=== PATIENT | female | born 1955 | race Two or more races ===

== ENCOUNTER 2023-11-19 19:18 | Inpatient (IN) | payer OTHER ==
[~2023-11-19] VITALS: Ht 154.9 cm; Wt 62.7 kg
[2023-11-19] MEDS: SODIUM CHLORIDE 0.9% 1,000 ML IV ONE (21:06)
[2023-11-19] MEDS: PANTOPRAZOLE 40 MG/10 ML VIAL INJ IV ONE (21:06)
[2023-11-19] MEDS: ONDANSETRON HCL 4 MG/2 ML VIAL IV ONE (21:06)
[2023-11-19] MEDS: IOHEXOL 300 MG/ML 100ML BOTTLE IJ ONE (21:06)
[2023-11-19 21:37] LABS: Basophils # (auto) 0 10 ^3/uL (0-0.2); Basophils % (auto) 0.5 % (0.0-2.0); Eosinophils # (auto) 0 10 ^3/uL (0-0.8); Eosinophils % (auto) 0.2 % (0.0-7.0); Hematocrit 39.5 % (36.0-46.0); Hemoglobin 13.9 g/dL (12.2-16.2); Lymphocytes % (auto) 13.7 % (10.0-50.0); Mean Corpuscular Hemoglobin 31.2 pg (28.0-32.0); Mean Corpuscular Hgb Conc. 35.2 g/dL (32.0-36.0); Mean Corpuscular Volume 88.6 fL (80.0-100.0); Monocytes # (auto) 0.6 10 ^3/uL (0-1.3); Monocytes % (auto) 7.7 % (0.0-12.0); Neutrophils # (auto) 5.8 10 ^3/uL (1.6-8.6); Neutrophils % (auto) 77.9 % (37.0-80.0); Nucleated Red Blood Cells % 0.1 %; Red Blood Cells 4.46 10^6/uL (4.0-5.20); Red Cell Distribution Width 13.5 % (11.8-14.3); White Blood Cell 7.5 10^3/uL (4.4-10.8)
[2023-11-19 21:56] LABS: Albumin 4.1 g/dL (3.2-4.8); Alkaline Phosphatase 59 U/L (46-116); Anion Gap 14 (5-15); Aspartate Aminotransferase 9 U/L (13-40); BUN/Creatinine Ratio 21.7 (10.0-20.0); Bilirubin, Total 1.2 mg/dL (0.2-1.0); Blood Urea Nitrogen 25 mg/dL (9-23); Calcium 9.6 mg/dL (8.7-10.4); Carbon Dioxide 26 mmol/L (20-30); Chloride 89 mmol/L (98-107); Glucose 96 mg/dL (74-106); Lipase 63 U/L (12-53); Potassium 2.8 mmol/L (3.5-5.1); Sodium 129 mmol/L (136-145); Total Protein 6.6 g/dL (5.7-8.2)
[2023-11-19 22:00] LABS: Alanine Aminotransferase < 9 U/L (7-40)
[2023-11-19 23:44] VITALS: PULSE 91; RESP 12; O2SAT 96
[2023-11-19] MEDS: POTASSIUM CHL 20MEQ/100ML 100 ML IV SCH (23:53)
[2023-11-20 00:51] LABS: Urine Bacteria None Seen /hpf (None Seen)
[2023-11-20 01:24] LABS: Urine Blood TRACE /uL (Negative); Urine Clarity Clear (Clear); Urine Color Yellow (Yellow); Urine Protein, UAD 1+ (Negative); Urine Specific Gravity 1.027 (1.001-1.035); Urine Urobilinogen 3 mg/dL (Negative); Urine WBC 6 /hpf (0 - 5); Urine pH 6.5 (5.0-9.0)
[2023-11-20] MEDS: SODIUM CHLORIDE 0.9% 1,000 ML IV SCH (03:45)
[2023-11-20 04:43] LABS: Basophils # (auto) 0 10 ^3/uL (0-0.2); Basophils % (auto) 0.5 % (0.0-2.0); Eosinophils # (auto) 0 10 ^3/uL (0-0.8); Eosinophils % (auto) 0.6 % (0.0-7.0); Hematocrit 35.7 % (36.0-46.0); Hemoglobin 12.4 g/dL (12.2-16.2); Lymphocytes # (auto) 0.9 10 ^3/uL (0.4-5.4); Lymphocytes % (auto) 16.9 % (10.0-50.0); Mean Corpuscular Hemoglobin 30.9 pg (28.0-32.0); Mean Corpuscular Hgb Conc. 34.8 g/dL (32.0-36.0); Mean Corpuscular Volume 88.9 fL (80.0-100.0); Monocytes # (auto) 0.6 10 ^3/uL (0-1.3); Monocytes % (auto) 10.4 % (0.0-12.0); Neutrophils # (auto) 3.9 10 ^3/uL (1.6-8.6); Neutrophils % (auto) 71.6 % (37.0-80.0); Red Blood Cells 4.02 10^6/uL (4.0-5.20); Red Cell Distribution Width 13.8 % (11.8-14.3); White Blood Cell 5.5 10^3/uL (4.4-10.8)
[2023-11-20 04:48] LABS: Chloride 100 mmol/L (98-107); Potassium 3.6 mmol/L (3.5-5.1); Sodium 133 mmol/L (136-145)
[2023-11-20 04:49] LABS: Anion Gap 8 (5-15); Carbon Dioxide 25 mmol/L (20-30)
[2023-11-20 04:50] LABS: Calcium 7.7 mg/dL (8.7-10.4)
[2023-11-20 04:54] LABS: Blood Urea Nitrogen 20 mg/dL (9-23); Glucose 72 mg/dL (74-106)
[2023-11-20 07:48] VITALS: PULSE 99; RESP 12; O2SAT 96
[2023-11-20] MEDS ORDERED: MIDAZOLAM HCL 2MG/2ML 2ml VIAL (1mg/ml) ONE (14:57)
[2023-11-20] MEDS ORDERED: PROPOFOL 10 MG/ML 20 ML IV ONE (15:16)
[2023-11-20] MEDS ORDERED: ONDANSETRON HCL 4 MG/2 ML VIAL ONE (15:20)
[2023-11-20 15:30] VITALS: O2SAT 100
[2023-11-20 16:00] VITALS: BP 156/82; PULSE 88; RESP 16; TEMP 98.5; O2SAT 92
[2023-11-20 16:24] VITALS: O2SAT 97
[2023-11-20 16:25] VITALS: O2SAT 100
[2023-11-20 20:00] VITALS: PULSE 76; PULSE 80; RESP 18; O2SAT 95
[2023-11-20] MEDS: PANTOPRAZOLE 40 MG/10 ML VIAL INJ IV SCH (21:44)
[2023-11-21] VITALS (8 sets, daily range): BP systolic 132–168; BP diastolic 71–97; PULSE 80–92; RESP 16–97; TEMP 97–98.9; O2SAT 93–99
[2023-11-21] MEDS ORDERED: TPN PER PHARMACY 0 ML IV SCH (16:15)
[2023-11-21 16:40] LABS: INR 1.26 (0.9-1.15); Prothrombin Time 13.1 sec (9.3-11.8)
[2023-11-21] MEDS ORDERED: DEXTROSE (50%) 50ML SYRG IV SCH (16:45)
[2023-11-21] MEDS: ACCU-CHEK COMFORT CURVE STRIP VI SCH (18:00)
[2023-11-21] MEDS: InsuLIN REG 1unit/0.01ml Soln (100units/ml) SC SCH (18:00)
[2023-11-21 18:15] LABS: Alkaline Phosphatase 55 U/L (46-116); Anion Gap 11 (5-15); Aspartate Aminotransferase 10 U/L (13-40); BUN/Creatinine Ratio 14.9 (10.0-20.0); Blood Urea Nitrogen 13 mg/dL (9-23); Calcium 8.4 mg/dL (8.7-10.4); Carbon Dioxide 19 mmol/L (20-30); Chloride 105 mmol/L (98-107); Glucose 85 mg/dL (74-106); Magnesium 1.5 mg/dL (1.6-2.6); Potassium 3.2 mmol/L (3.5-5.1); Sodium 135 mmol/L (136-145)
[2023-11-21 18:16] LABS: Albumin 3.2 g/dL (3.2-4.8); Bilirubin, Total 0.8 mg/dL (0.2-1.0); Phosphorus 1.7 mg/dL (2.4-5.1); Total Protein 5.4 g/dL (5.7-8.2)
[2023-11-21 18:19] LABS: Alanine Aminotransferase < 9 U/L (7-40)
[2023-11-21] MEDS: MAGNESIUM SULFATE 1GM/100ML 100 ML IV SCH (19:15)
[2023-11-21] MEDS: POTASSIUM PHOSPHATE 22 MEQ in SODIUM CHL 0.9% 100 ML IV ONE (21:02)
[2023-11-21] MEDS: AMINO ACID INFUSION IN D10W 1,000 ML IV SCH (21:10)
[2023-11-22] VITALS (9 sets, daily range): BP systolic 152–168; BP diastolic 79–103; PULSE 77–100; RESP 16–19; TEMP 97.7–98.5; O2SAT 97–98
[2023-11-22 04:47] LABS: Basophils # (auto) 0 10 ^3/uL (0-0.2); Basophils % (auto) 0.3 % (0.0-2.0); Eosinophils # (auto) 0.1 10 ^3/uL (0-0.8); Eosinophils % (auto) 0.7 % (0.0-7.0); Hematocrit 39.4 % (36.0-46.0); Hemoglobin 13.7 g/dL (12.2-16.2); Lymphocytes # (auto) 0.7 10 ^3/uL (0.4-5.4); Lymphocytes % (auto) 8.2 % (10.0-50.0); Mean Corpuscular Hemoglobin 30.9 pg (28.0-32.0); Mean Corpuscular Hgb Conc. 34.8 g/dL (32.0-36.0); Mean Corpuscular Volume 88.8 fL (80.0-100.0); Monocytes # (auto) 0.3 10 ^3/uL (0-1.3); Monocytes % (auto) 3.6 % (0.0-12.0); Neutrophils # (auto) 7.1 10 ^3/uL (1.6-8.6); Neutrophils % (auto) 87.2 % (37.0-80.0); Red Blood Cells 4.44 10^6/uL (4.0-5.20); White Blood Cell 8.1 10^3/uL (4.4-10.8)
[2023-11-22 04:56] LABS: Calcium 8.7 mg/dL (8.7-10.4); Chloride 102 mmol/L (98-107); Potassium 2.8 mmol/L (3.5-5.1); Sodium 135 mmol/L (136-145)
[2023-11-22 04:57] LABS: Anion Gap 10 (5-15); Carbon Dioxide 23 mmol/L (20-30)
[2023-11-22 05:02] LABS: BUN/Creatinine Ratio 15.9 (10.0-20.0); Blood Urea Nitrogen 13 mg/dL (9-23); Glucose 144 mg/dL (74-106)
[2023-11-22 05:04] LABS: Phosphorus 1.3 mg/dL (2.4-5.1)
[2023-11-22] MEDS: ONDANSETRON HCL 4 MG/2 ML VIAL IV PRN (11:26)
[2023-11-22] MEDS: LIDOCAINE 1% (LOCAL ANESTH.) PF 5ml SDV ID ONE (14:30)
[2023-11-22] MEDS: POTASSIUM PHOSPHATE 44 MEQ in D5W 5% 250 ML IV ONE (14:45)
[2023-11-22] MEDS: POTASSIUM PHOSPHATE 22 MEQ in SODIUM CHL 0.9% 100 ML IV ONE (14:50)
[2023-11-22] MEDS: POTASSIUM CHL 20MEQ/100ML 100 ML IV SCH (15:00)
[2023-11-22] MEDS: SODIUM CHLOR 0.9% PF (SALINE LOCK) 10ML VIAL/SYR IV SCH (21:39)
[2023-11-23] VITALS (9 sets, daily range): BP systolic 117–179; BP diastolic 66–96; PULSE 63–99; RESP 16–18; TEMP 97.4–98.2; O2SAT 96–97
[2023-11-23 05:24] LABS: Basophils # (auto) 0 10 ^3/uL (0-0.2); Basophils % (auto) 0.3 % (0.0-2.0); Eosinophils # (auto) 0.1 10 ^3/uL (0-0.8); Eosinophils % (auto) 0.8 % (0.0-7.0); Hematocrit 35.7 % (36.0-46.0); Lymphocytes # (auto) 0.6 10 ^3/uL (0.4-5.4); Mean Corpuscular Hemoglobin 31.2 pg (28.0-32.0); Mean Corpuscular Hgb Conc. 36.4 g/dL (32.0-36.0); Mean Corpuscular Volume 85.8 fL (80.0-100.0); Monocytes # (auto) 0.5 10 ^3/uL (0-1.3); Monocytes % (auto) 5.6 % (0.0-12.0); Neutrophils # (auto) 7.2 10 ^3/uL (1.6-8.6); Neutrophils % (auto) 86.3 % (37.0-80.0); Red Blood Cells 4.17 10^6/uL (4.0-5.20); Red Cell Distribution Width 13.8 % (11.8-14.3); White Blood Cell 8.3 10^3/uL (4.4-10.8)
[2023-11-23 05:27] LABS: Chloride 105 mmol/L (98-107); Potassium 2.6 mmol/L (3.5-5.1); Sodium 136 mmol/L (136-145)
[2023-11-23 05:28] LABS: Anion Gap 7 (5-15); Calcium 8.2 mg/dL (8.7-10.4); Carbon Dioxide 24 mmol/L (20-30)
[2023-11-23 05:33] LABS: BUN/Creatinine Ratio 21.4 (10.0-20.0); Blood Urea Nitrogen 15 mg/dL (9-23); Glucose 167 mg/dL (74-106); Triglycerides 96 mg/dL (< 150)
[2023-11-23 05:34] LABS: Magnesium 1.5 mg/dL (1.6-2.6)
[2023-11-23 05:35] LABS: Phosphorus 2.7 mg/dL (2.4-5.1)
[2023-11-23] MEDS ORDERED: SODIUM CHLORIDE 0.9% 1,000 ML IV SCH (12:30)
[2023-11-23] MEDS: POTASSIUM CHL 20MEQ/100ML 100 ML IV SCH (12:52)
[2023-11-23] MEDS: MAGNESIUM SULFATE 1GM/100ML 100 ML IV ONE (12:53)
[2023-11-23] MEDS: hydrALAZINE HCL 20 MG/ML VL IV PRN (12:54)
[2023-11-23] MEDS ORDERED: POTASSIUM CHL 20MEQ/100ML 100 ML IV SCH (13:15)
[2023-11-23] MEDS ORDERED: METOPROLOL TARTRATE 1MG/1ML-5ML VIAL IV PRN (13:30)
[2023-11-23] MEDS: MAGNESIUM SULFATE 1GM/100ML 100 ML IV SCH (14:10)
[2023-11-23 18:08] LABS: Anion Gap 6 (5-15); Carbon Dioxide 24 mmol/L (20-30); Chloride 104 mmol/L (98-107); Potassium 3.1 mmol/L (3.5-5.1); Sodium 134 mmol/L (136-145)
[2023-11-23 18:09] LABS: Calcium 8.4 mg/dL (8.7-10.4)
[2023-11-23 18:14] LABS: BUN/Creatinine Ratio 23.9 (10.0-20.0); Blood Urea Nitrogen 16 mg/dL (9-23); Glucose 161 mg/dL (74-106)
[2023-11-23] MEDS: TPN PER PHARMACY IV NR (20:49)
[2023-11-24] VITALS (9 sets, daily range): BP systolic 100–138; BP diastolic 64–79; PULSE 83–119; RESP 16–20; TEMP 97.4–97.8; O2SAT 95–97
[2023-11-24] MEDS: SODIUM CHLORIDE 0.9% 1,000 ML IV SCH (00:46)
[2023-11-24 05:57] LABS: Basophils # (auto) 0 10 ^3/uL (0-0.2); Basophils % (auto) 0.2 % (0.0-2.0); Eosinophils # (auto) 0.1 10 ^3/uL (0-0.8); Eosinophils % (auto) 0.8 % (0.0-7.0); Hematocrit 38.5 % (36.0-46.0); Hemoglobin 13.5 g/dL (12.2-16.2); Lymphocytes # (auto) 0.9 10 ^3/uL (0.4-5.4); Lymphocytes % (auto) 9.5 % (10.0-50.0); Mean Corpuscular Volume 88.4 fL (80.0-100.0); Monocytes # (auto) 0.7 10 ^3/uL (0-1.3); Monocytes % (auto) 7.5 % (0.0-12.0); Neutrophils # (auto) 7.8 10 ^3/uL (1.6-8.6); Nucleated Red Blood Cells % 0.1 %; Red Blood Cells 4.35 10^6/uL (4.0-5.20); Red Cell Distribution Width 13.9 % (11.8-14.3); White Blood Cell 9.5 10^3/uL (4.4-10.8)
[2023-11-24 06:12] LABS: Albumin 3.1 g/dL (3.2-4.8); Alkaline Phosphatase 60 U/L (46-116); Anion Gap 5 (5-15); Aspartate Aminotransferase 10 U/L (13-40); BUN/Creatinine Ratio 25.4 (10.0-20.0); Blood Urea Nitrogen 18 mg/dL (9-23); Calcium 8.3 mg/dL (8.7-10.4); Carbon Dioxide 26 mmol/L (20-30); Chloride 104 mmol/L (98-107); Glucose 114 mg/dL (74-106); Magnesium 2.5 mg/dL (1.6-2.6); Potassium 3.4 mmol/L (3.5-5.1); Sodium 135 mmol/L (136-145)
[2023-11-24 06:13] LABS: Bilirubin, Total 0.6 mg/dL (0.2-1.0); Phosphorus 1.9 mg/dL (2.4-5.1); Total Protein 5.3 g/dL (5.7-8.2)
[2023-11-24 06:15] LABS: Alanine Aminotransferase < 9 U/L (7-40)
[2023-11-24] MEDS: POTASSIUM PHOSPHATE 26.4 MEQ in SODIUM CHL 0.9% 100 ML IV ONE (12:57)
[2023-11-24] MEDS: TPN PER PHARMACY IV NR (21:18)
[2023-11-25 04:46] VITALS: BP 98/65; PULSE 89; RESP 20; TEMP 98.6; O2SAT 96
[2023-11-25 06:01] LABS: Alkaline Phosphatase 64 U/L (46-116); Anion Gap 8 (5-15); Aspartate Aminotransferase 23 U/L (13-40); BUN/Creatinine Ratio 31.5 (10.0-20.0); Calcium 8.2 mg/dL (8.7-10.4); Carbon Dioxide 24 mmol/L (20-30); Chloride 106 mmol/L (98-107); Glucose 134 mg/dL (74-106); Magnesium 2.2 mg/dL (1.6-2.6); Phosphorus 4.3 mg/dL (2.4-5.1); Potassium 3.6 mmol/L (3.5-5.1); Sodium 138 mmol/L (136-145)
[2023-11-25 06:02] LABS: Bilirubin, Total 0.4 mg/dL (0.2-1.0); Total Protein 4.8 g/dL (5.7-8.2)
[2023-11-25 06:05] LABS: Basophils # (auto) 0 10 ^3/uL (0-0.2); Basophils % (auto) 0.3 % (0.0-2.0); Eosinophils # (auto) 0.1 10 ^3/uL (0-0.8); Eosinophils % (auto) 0.7 % (0.0-7.0); Hematocrit 35.5 % (36.0-46.0); Hemoglobin 12.1 g/dL (12.2-16.2); Lymphocytes # (auto) 1.3 10 ^3/uL (0.4-5.4); Lymphocytes % (auto) 15.8 % (10.0-50.0); Mean Corpuscular Hemoglobin 30.7 pg (28.0-32.0); Mean Corpuscular Hgb Conc. 34.2 g/dL (32.0-36.0); Mean Corpuscular Volume 89.7 fL (80.0-100.0); Monocytes # (auto) 1.1 10 ^3/uL (0-1.3); Neutrophils % (auto) 70.2 % (37.0-80.0); Nucleated Red Blood Cells % 0.1 %; Red Blood Cells 3.96 10^6/uL (4.0-5.20); Red Cell Distribution Width 14.5 % (11.8-14.3); White Blood Cell 8.5 10^3/uL (4.4-10.8)
[2023-11-25 06:17] LABS: Alanine Aminotransferase < 9 U/L (7-40); Blood Urea Nitrogen 29 mg/dL (9-23)
[2023-11-25 08:00] VITALS: BP 98/65; PULSE 94; PULSE 96; RESP 16; RESP 18; TEMP 97.9; O2SAT 99
[2023-11-25 12:00] VITALS: BP 101/66; PULSE 105; RESP 18; TEMP 98.1; O2SAT 97
[2023-11-25] MEDS ORDERED: NOREPINEPHRINE 8 MG/250ML KIT 250 ML IV ONE (15:15)
[2023-11-25] MEDS ORDERED: PHENYLEPHRINE IV 250 ML IV ONE (15:27)
[2023-11-25] MEDS ORDERED: PHENYLEPHRINE IV 250 ML IV SCH (15:30)
[2023-11-25] MEDS ORDERED: NOREPINEPHRINE 8 MG/250ML KIT 250 ML IV SCH (15:30)
[2023-11-25 15:38] LABS: Base Excess -17.5 mmol/L (-2.0-2.0)
[2023-11-25 15:43] VITALS: BP 112/85; PULSE 136; RESP 29
[2023-11-25] MEDS ORDERED: PROPOFOL 0 ML IV ONE (15:55)
[2023-11-25] MEDS ORDERED: MIDAZOLAM DRIP 50 mg/50mL 0 ML IV ONE (15:55)
[2023-11-25 15:59] LABS: Basophils # (auto) 0 10 ^3/uL (0-0.2); Basophils % (auto) 0.4 % (0.0-2.0); Eosinophils # (auto) 0.1 10 ^3/uL (0-0.8); Eosinophils % (auto) 0.5 % (0.0-7.0); Hematocrit 27.8 % (36.0-46.0); Hemoglobin 9.2 g/dL (12.2-16.2); Lymphocytes # (auto) 4.3 10 ^3/uL (0.4-5.4); Lymphocytes % (auto) 40.5 % (10.0-50.0); Mean Corpuscular Hemoglobin 31.3 pg (28.0-32.0); Mean Corpuscular Volume 94.9 fL (80.0-100.0); Neutrophils # (auto) 5.3 10 ^3/uL (1.6-8.6); Neutrophils % (auto) 49.6 % (37.0-80.0); Nucleated Red Blood Cells % 0.2 %; Red Blood Cells 2.93 10^6/uL (4.0-5.20); Red Cell Distribution Width 15.3 % (11.8-14.3); White Blood Cell 10.6 10^3/uL (4.4-10.8)
[2023-11-25] MEDS ORDERED: SODIUM BICARB 8.4% 50Meq/50ml SYR Vial IV ONE ×2 (16:01→16:19)
[2023-11-25] MEDS ORDERED: EPINEPHrine HCL 250 ML IV ONE (16:01)
[2023-11-25 16:09] LABS: Alanine Aminotransferase 27 U/L (7-40); Albumin 1.9 g/dL (3.2-4.8); Alkaline Phosphatase 62 U/L (46-116); Anion Gap 14 (5-15); Aspartate Aminotransferase 160 U/L (13-40); BUN/Creatinine Ratio 32.2 (10.0-20.0); Blood Urea Nitrogen 29 mg/dL (9-23); Carbon Dioxide 19 mmol/L (20-30); Chloride 115 mmol/L (98-107); Glucose 302 mg/dL (74-106); Magnesium 1.7 mg/dL (1.6-2.6); Potassium 3.4 mmol/L (3.5-5.1)
[2023-11-25 16:10] LABS: Bilirubin, Total < 0.2 mg/dL (0.2-1.0)
[2023-11-25 16:13] LABS: Sodium 148 mmol/L (136-145)
[2023-11-25 16:17] LABS: Calcium 5.9 mg/dL (8.7-10.4)
[2023-11-25 16:21] LABS: Base Excess -15.2 mmol/L (-2.0-2.0)
[2023-11-25] MEDS ORDERED: SODIUM BICARB 8.4% 50Meq/50ml SYR INJ IV ONE (18:57)
[2023-11-25] MEDS ORDERED: TPN PER PHARMACY IV NR (20:00)
== END 2023-11-25 21:30 | DRG 380 ==
LOC: ER 19:18 → TELE 11-20 04:04 → ER 11-20 04:21 → TELE-WESTW 11-20 16:26
PROVIDERS: ADMIT Internal Medicine; ATTEND Internal Medicine
PROC: 0DB78ZX Excision of Stomach, Pylorus, Via Natural or Artificial Opening Endoscopic, Diagnostic (ICD-10-PCS; principal; 2023-11-20 14:53)
PROC: 02HV33Z Insertion of Infusion Device into Superior Vena Cava, Percutaneous Approach (ICD-10-PCS; 2023-11-22)
PROC: B548ZZA Ultrasonography of Superior Vena Cava, Guidance (ICD-10-PCS; 2023-11-22)
PROC: 3E0336Z Introduction of Nutritional Substance into Peripheral Vein, Percutaneous Approach (ICD-10-PCS; 2023-11-22)
PROC: 5A12012 Performance of Cardiac Output, Single, Manual (ICD-10-PCS; 2023-11-25)
PROC: 0BH17EZ Insertion of Endotracheal Airway into Trachea, Via Natural or Artificial Opening (ICD-10-PCS; 2023-11-25)
PROC: 5A1935Z Respiratory Ventilation, Less than 24 Consecutive Hours (ICD-10-PCS; 2023-11-25)
DX: K31.1 Adult hypertrophic pyloric stenosis (principal); N17.0 Acute kidney failure with tubular necrosis; E87.1 Hypo-osmolality and hyponatremia; K22.10 Ulcer of esophagus without bleeding; F41.9 Anxiety disorder, unspecified; I46.9 Cardiac arrest, cause unspecified; E87.6 Hypokalemia; K21.9 Gastro-esophageal reflux disease without esophagitis; K31.7 Polyp of stomach and duodenum; R62.7 Adult failure to thrive; G20.A1 Parkinson's disease without dyskinesia, without mention of fluctuations; F32.A Depression, unspecified; Z88.0 Allergy status to penicillin; Z83.3 Family history of diabetes mellitus; Z80.8 Family history of malignant neoplasm of other organs or systems; Z68.23 Body mass index [BMI] 23.0-23.9, adult
CPT/HCPCS: 31500; 36415; 36569; 36600; 70450; 71045; 71260; 74177; 80048; 80053; 81001; 82550; 82805; 82962; 83690; 83735; 84100; 84478; 84484; 85025; 85610; 87070; 87077; 87186; 87205; 92950; 94002; 96361; 96374; 96375; 97110; 97116; 97163; 97530; G0378; J0171; J1815; J2250; J2405; J2470; J2704; J3480; J7060; J7131